=== PATIENT | female | born 1990 | race Caucasian/White ===

== ENCOUNTER 2017-07-24 14:41 | Emergency (ER) | payer MEDICAID ==
[2017-07-24 16:23] LABS: COLOR YELLOW (YELLOW)
[2017-07-24 16:24] LABS: APPEARANCE CLEAR (CLEAR); BILIRUBIN NEGATIVE (NEGATIVE); GLUCOSE NEGATIVE (NEGATIVE); KETONE NEGATIVE (NEGATIVE); NITRITE NEGATIVE (NEGATIVE); PROTEIN NEGATIVE (NEGATIVE); UROBILINOGEN NORMAL (NORMAL)
[2017-07-24 16:37] LABS: HCG SERUM NEGATIVE (NEGATIVE)
== END 2017-07-24 18:45 | disposition home or self-care (01) ==
LOC: D.ER 14:41
PROVIDERS: Emergency Medicine
DX: T76.21XA Adult sexual abuse, suspected, initial encounter (principal)

== ENCOUNTER 2018-05-12 10:28 | Emergency (ER) | payer MEDICAID ==
[~2018-05-12] VITALS: Ht 147.3 cm; Wt 43.2 kg
[2018-05-12 10:33] VITALS: Ht 147.3 cm; Wt 43.2 kg
[2018-05-12 14:00] VITALS: BP 132/074
== END 2018-05-13 07:04 | disposition home or self-care (01) ==
LOC: D.ER 10:28
DX: K08.89 Other specified disorders of teeth and supporting structures (principal); F17.200 Nicotine dependence, unspecified, uncomplicated

== ENCOUNTER 2018-09-20 19:59 | Emergency (ER) | payer MEDICAID ==
[~2018-09-20] VITALS: Ht 147.3 cm; Wt 43.2 kg
[2018-09-20 20:08] VITALS: Ht 147.3 cm; Wt 43.2 kg
[2018-09-20 20:36] LABS: BASOPHILS 0.2 % (0-2); EOSINOPHILS 1.3 % (0-7); HEMATOCRIT 36.8 % (36.0-48.0); IMMATURE GRANULOCYTES 0.1 % (0-5); LYMPHOCYTES 37.6 % (15-50); MCH 30.7 pg (26.0-34.0); MCHC 35.3 g/dL (31.0-37.0); MEAN PLATELET VOLUME 8.1 fL (7.4-10.4); NEUTROPHILS 53.8 % (40-80); PLATELET COUNT 373 10x3/uL (130-400); RBC 4.23 10x6/uL (4.00-5.40); RDW 13.2 % (11.5-14.5); WBC 8.7 10x3/uL (4.8-10.8)
[2018-09-20 20:54] LABS: ALBUMIN 4.2 g/dL (3.4-5.0); ALKALINE PHOSPHATASE 51 U/L (46-116); ALT (SGPT) 26 U/L (10-68); BILIRUBIN - TOTAL 0.22 mg/dL (0.2-1.3); CALC OSMOLALITY 270 mosm/kg (275-300); CALCIUM 9.5 mg/dL (8.5-10.1); CARBON DIOXIDE 28.9 mmol/L (21.0-32.0); CHLORIDE - SERUM 100 mmol/L (98-107); CREATININE - SERUM 0.6 mg/dL (0.6-1.3); GLUCOSE 95 mg/dL (74-106); POTASSIUM - SERUM 3.6 mmol/L (3.5-5.1); PROTEIN - SERUM 7.5 g/dL (6.4-8.2); SODIUM 137 mmol/L (136-145); UREA NITROGEN 5 mg/dL (7-18); eGFR NON AFRICAN AMERICAN > 90 mL/min (90-120)
[2018-09-20 21:17] LABS: APPEARANCE CLEAR (CLEAR); BILIRUBIN NEGATIVE (NEGATIVE); COLOR YELLOW (YELLOW); GLUCOSE NEGATIVE (NEGATIVE); KETONE NEGATIVE (NEGATIVE); NITRITE NEGATIVE (NEGATIVE); PROTEIN NEGATIVE (NEGATIVE); UROBILINOGEN NORMAL (NORMAL)
[2018-09-20 21:19] LABS: BACTERIA MODERATE /hpf (NONE SEEN); RED CELLS - URINE 0-5 /hpf (0-5); WHITE CELLS - URINE 0-5 /hpf (0-5)
[2018-09-20 21:51] LABS: HCG SERUM POSITIVE (NEGATIVE)
[2018-09-21 00:38] VITALS: BP 106/78
[2018-09-22] MEDS ORDERED: KLONOPIN1 MG PO (15:36)
[2018-09-22] MEDS ORDERED: VOLTAREN75 MG PO (15:37)
[2018-09-22] MEDS ORDERED: ROBAXIN500 MG PO (15:38)
[2018-09-22] MEDS ORDERED: ULTRAM50 MG PO (15:38)
[2018-09-24 10:11] VITALS: Ht 147.3 cm; Wt 43.2 kg
== END 2018-09-21 00:39 | disposition home or self-care (01) ==
LOC: D.ER 19:59
PROVIDERS: Family Medicine
DX: O20.0 Threatened abortion (principal); Z3A.00 Weeks of gestation of pregnancy not specified

== ENCOUNTER 2018-09-24 09:55 | Day surgery (SDC) | payer MEDICAID ==
[2018-09-22 16:26] LABS: BASOPHILS 0.3 % (0-2); EOSINOPHILS 0.9 % (0-7); HEMATOCRIT 36.4 % (36.0-48.0); HEMOGLOBIN 12.7 g/dL (12-16); IMMATURE GRANULOCYTES 0.3 % (0-5); LYMPHOCYTES 28.1 % (15-50); MCH 30.6 pg (26.0-34.0); MCHC 34.9 g/dL (31.0-37.0); MCV 87.7 fL (80.0-100.0); MEAN PLATELET VOLUME 8.1 fL (7.4-10.4); MONOCYTES 5.7 % (2-11); NEUTROPHILS 64.7 % (40-80); PLATELET COUNT 378 10x3/uL (130-400); RBC 4.15 10x6/uL (4.00-5.40); WBC 9.1 10x3/uL (4.8-10.8)
[~2018-09-24] VITALS: Ht 144.8 cm; Wt 43.5 kg
[~2018-09-24 09:55] MED LIST: KLONOPIN1 MG PO; ROBAXIN500 MG PO; ULTRAM50 MG PO; VOLTAREN75 MG PO
[2018-09-24 10:11] VITALS: BP 100/58; Ht 144.8 cm; Wt 43.5 kg
--- NOTE | 2018-09-24 12:25 | NUR ---
ASSUMED CARE OF PATIENT. TOLERATED FL DIET. AMBULATED TO BATHROOM AND VOIDED WITHOUT DIFFICULTY. IV DC'D WITH CATHETER INTACT.
--- NOTE | 2018-09-24 13:25 | NUR ---
WRITTEN AND VERBAL DC INST. GIVEN TO PT. VERBALIZED UNDERSTANDING.
--- NOTE | 2018-09-24 13:30 | NUR ---
DC'D HOME WITH FAMILY VIA PRIVATE VEHICLE. TAKEN TO VEHICLE VIA WC. SDTABLE AT TIME OF DC.
--- NOTE | 2018-09-27 03:33 | OP ---
PATIENT NAME: NEERAJ FU MEDICAL RECORD: [id number] :89 LOCATION:[facility] ADMISSION DATE: SURGEON: KAMLESH BOOTHE MD DATE OF OPERATION: 09/24/2018 PREOPERATIVE DIAGNOSIS: Missed . POSTOPERATIVE DIAGNOSIS: Missed . PROCEDURE: Suction D&E. SURGEON: Kamlesh Boothe MD ANESTHESIOLOGIST: Dr. Tobar. ANESTHESIA: General. FINDINGS: Moderate amounts of products of conception. Cervix and vaginal vault unremarkable. SPECIMEN DISPOSITION: Pathology. ESTIMATED BLOOD LOSS: Less than or equal to 75 mL. FLUIDS: 1 liter lactated Ringer's. URINE OUTPUT: Quantity sufficient void prior to this procedure. COMPLICATIONS: None. DRAINS: None. INDICATIONS: The patient is a 27-year-old female with a known intrauterine . No cardiac activity. The patient is consented for a dilation and evacuation. DESCRIPTION OF PROCEDURE: After informed consent was assured, the patient was taken to the operating room where anesthetic was obtained. The patient was now prepped and draped after being placed in [facility]. Weighted speculum was introduced into the vagina and using a Forman retractor the anterior lip of the cervix was identified and grasped with a single tooth tenaculum and placed on gentle traction. The cervix was now dilated with Hanks dilators to accommodate an 8-mm curved suction curette, which was passed gently to the fundus and suction applied. Products of conception removed on several passes. A #2 curette was now used to obtain good cry throughout the uterus. A single pass with the suction device removed all remaining clot and debris. A single tooth tenaculum was removed from the anterior lip of the cervix with adequate hemostasis noted. The speculum was removed. The patient was taken down from the stirrups and went to the recovery room in stable condition. Sponge, lap and needle counts were correct times 2. TRANSINT:[id number] Voice Confirmation ID: [id number] DOCUMENT ID: [id number] OPERATIVE REPORT [id number] NEERAJ FU JOSEPH E MD at 0333 CC: [id number] DICTATION DATE: 09/24/18 1125 CROZE CUTTER: 09/24/18 1207 [facility] 09/24/[address] [place] [address]
== END 2018-09-24 13:30 | disposition home or self-care (01) ==
LOC: D.PAN 09:55 → D.OPS 14:00 → D.PAN 14:00
PROVIDERS: ATTEND Obstetrics & Gynecology
DX: O02.1 Missed abortion (principal); Z01.812 Encounter for preprocedural laboratory examination

== ENCOUNTER 2019-10-17 20:46 | Emergency (ER) | payer OTHER ==
[~2019-10-17] VITALS: Ht 144.8 cm; Wt 47.7 kg
[2019-10-17 20:53] VITALS: Ht 144.8 cm; Wt 47.7 kg
[2019-10-17 21:31] LABS: BASOPHILS 0.3 % (0-2); EOSINOPHILS 1.4 % (0-7); HEMATOCRIT 41.9 % (36.0-48.0); HEMOGLOBIN 14.1 g/dL (12-16); IMMATURE GRANULOCYTES 0.1 % (0-5); LYMPHOCYTES 35.5 % (15-50); MCH 30.6 pg (26.0-34.0); MCHC 33.7 g/dL (31.0-37.0); MCV 90.9 fL (80.0-100.0); MEAN PLATELET VOLUME 8.6 fL (7.4-10.4); MONOCYTES 5.2 % (2-11); NEUTROPHILS 57.5 % (40-80); PLATELET COUNT 411 10x3/uL (130-400); RBC 4.61 10x6/uL (4.00-5.40); RDW 13.2 % (11.5-14.5); WBC 9.5 10x3/uL (4.8-10.8)
[2019-10-17 21:40] LABS: CALC OSMOLALITY 274 mosm/kg (275-300); CALCIUM 8.9 mg/dL (8.5-10.1); CARBON DIOXIDE 29.9 mmol/L (21.0-32.0); CHLORIDE - SERUM 100 mmol/L (98-107); GLUCOSE 90 mg/dL (74-106); POTASSIUM - SERUM 3.2 mmol/L (3.5-5.1); SODIUM 139 mmol/L (136-145); UREA NITROGEN 4 mg/dL (7-18); eGFR NON AFRICAN AMERICAN 69 mL/min (90-120)
[2019-10-17 21:49] LABS: BILIRUBIN NEGATIVE (NEGATIVE); GLUCOSE NEGATIVE (NEGATIVE); KETONE NEGATIVE (NEGATIVE); NITRITE NEGATIVE (NEGATIVE); UROBILINOGEN NORMAL (NORMAL)
[2019-10-17 21:49] LABS: ALBUMIN 3.9 g/dL (3.4-5.0); ALKALINE PHOSPHATASE 42 U/L (30-120); ALT (SGPT) 21 U/L (10-68); BILIRUBIN - TOTAL 0.37 mg/dL (0.2-1.3); PROTEIN - SERUM 7.4 g/dL (6.4-8.2)
[2019-10-17 21:51] LABS: TROPONIN-I < 0.017 ng/mL (0.000-0.060)
[2019-10-17] MEDS ORDERED: NAPROSYN500 MG PO (22:03)
[2019-10-17] MEDS ORDERED: TYLENOL W/CODEI1 TAB PO (22:03)
[2019-10-17 22:21] VITALS: BP 121/80
== END 2019-10-17 22:21 | disposition home or self-care (01) ==
LOC: D.ER 20:46
PROVIDERS: Family Medicine
DX: M79.602 Pain in left arm (principal); R07.89 Other chest pain; R06.02 Shortness of breath